=== PATIENT | female | born 1955 | race Caucasian/White ===

== ENCOUNTER 2017-06-20 09:38 | Inpatient (IN) | payer OTHER ==
[~2017-06-20] VITALS: Ht 154.9 cm; Wt 55.3 kg
[2017-06-20] MEDS ORDERED: COZAAR25 MG (09:55)
[2017-06-20] MEDS ORDERED: ATORVASTATIN CA20 MG (09:57)
[2017-06-20] MEDS ORDERED: ZOLOFT25 MG (09:57)
[2017-06-24] MEDS ORDERED: AMOX1TAB12 PO (12:49)
== END 2017-06-24 14:31 | disposition home or self-care (01) | DRG 690 ==
LOC: ER 09:38 → SURG-SUITE 17:01 → MEDI 17:01 → SURG-SUITE 18:37
PROC: BT43ZZZ Ultrasonography of Bilateral Kidneys (ICD-10-PCS; principal; 2017-06-20)
DX: N39.0 Urinary tract infection, site not specified (principal); B96.20 Unspecified Escherichia coli [E. coli] as the cause of diseases classified elsewhere